=== PATIENT | male | born 1995 | race Hispanic/Latino ===

== ENCOUNTER 2018-06-27 14:20 | Emergency (ER) | payer SELFPAY ==
[~2018-06-27] VITALS: Ht 175.3 cm; Wt 79.4 kg
[2018-06-27] MEDS ORDERED: ONDANSETRON HCL 4 MG ORAL DISINTEGRATING TAB PO ONE (16:45)
[2018-06-27] MEDS ORDERED: DICYCLOMINE HCL 20 MG TAB PO ONE (16:45)
[2018-06-27] MEDS ORDERED: ZOFRAN ODT4 MG PO (18:30)
[2018-06-27] MEDS ORDERED: BENTYL10 MG/1 ML PO (18:30)
== END 2018-06-27 18:48 | disposition home or self-care (01) ==
LOC: FSED 14:20
DX: R19.7 Diarrhea, unspecified (principal); A08.0 Rotaviral enteritis; K64.4 Residual hemorrhoidal skin tags
CPT/HCPCS: 81003; 99284